=== PATIENT | female | born 1985 | race Caucasian/White ===

== ENCOUNTER 2016-12-11 08:23 | Emergency (ER) | payer BC ==
[2016-12-11] MEDS ORDERED: SODIUM CHLORIDE 0.9% 1,000 ML ONE (11:29)
[2016-12-11] MEDS ORDERED: DIPHENHYDRAMINE 50 MG/ML VIAL ONE (13:09)
== END 2016-12-11 13:48 | disposition home or self-care (01) ==
LOC: ER 08:23
CPT/HCPCS: 36415; 71020; 71260; 72050; 80053; 82553; 84484; 85025; 85379; 85610; 85730; 93005; 96360